=== PATIENT | male | born 1945 | race Asian ===

== ENCOUNTER 2019-04-03 11:52 | Emergency (ER) | payer OTHER ==
[~2019-04-03] VITALS: Ht 175.3 cm; Wt 68.5 kg
[~2019-04-03 11:52] MED LIST: JALYN1 CAP PO; LEVOCETIRIZINE D5 M1 PO; NITROSTAT0.6 MG SL; PULMICORT0.5 MG/2 M IH; [UNRECOGNIZED DRUG - CODE] PO
[2019-04-03 11:56] VITALS: Ht 175.3 cm; Wt 68.5 kg
[2019-04-03] MEDS ORDERED: GOOD SENSE OMEP20 MG PO (12:24)
[2019-04-03] MEDS ORDERED: ROBAXIN500 MG PO (12:25)
[2019-04-03] MEDS ORDERED: THEOPHYLLINE400 M1 PO (12:25)
[2019-04-03] MEDS ORDERED: ASPIR 8181 MG PO (12:26)
[2019-04-03] MEDS ORDERED: FLO4 PO (12:27)
[2019-04-03] MEDS ORDERED: [UNRECOGNIZED DRUG - OTHER] (12:31)
[2019-04-03] MEDS ORDERED: SERETIDE (12:32)
[2019-04-03] MEDS ORDERED: SPIRIVA18 MC1 INH (12:32)
[2019-04-03 15:49] LABS: BASOPHIL % 0.3 % (0-2); PLATELET COUNT 195 x10^3mcL (130-400)
[2019-04-03 15:59] LABS: RED CELL DISTRIBUTION WIDTH 16.1 % (11.5-14.5)
[2019-04-03 16:06] LABS: CARBON DIOXIDE 32.3 mmol/L (21-32); CHLORIDE SERUM 106 mmol/L (98-107); CREATININE SERUM 1.1 mg/dL (0.7-1.3); GLUCOSE SERUM 119 mg/dL (74-106); POTASSIUM SERUM 4.9 mmol/L (3.5-5.1); SODIUM SERUM 142 mmol/L (136-145)
[2019-04-03 16:11] LABS: ALBUMIN 4.1 g/dL (3.4-5.0); ALKALINE PHOSPHATASE 90 U/L (46-116); ALT/SGPT 18 U/L (16-63); AST/SGOT 19 U/L (15-37); BILIRUBIN TOTAL 0.5 mg/dL (0.20-1.00); TOTAL PROTEIN, SERUM 7.7 g/dL (6.4-8.2)
[2019-04-03 19:16] VITALS: BP 156/84
== END 2019-04-03 19:46 | disposition home or self-care (01) ==
LOC: ED 11:52
PROVIDERS: Student in an Organized Health Care Education/Training Program
DX: J44.1 Chronic obstructive pulmonary disease with (acute) exacerbation (principal); I10 Essential (primary) hypertension; I71.2 Thoracic aortic aneurysm, without rupture; F17.210 Nicotine dependence, cigarettes, uncomplicated; Z86.73 Personal history of transient ischemic attack (TIA), and cerebral infarction without residual deficits
CPT/HCPCS: 83880; 85378; J2930; J7613; J7644; Q0092; Q9967

== ENCOUNTER 2019-12-26 22:28 | Inpatient (IN) | payer OTHER, SELFPAY ==
[~2019-12-26] VITALS: Ht 165.1 cm; Wt 70.3 kg
[~2019-12-26 22:28] MED LIST changes: +ASPIR 8181 MG PO; +FLO4 PO; +GOOD SENSE OMEP20 MG PO; +ROBAXIN500 MG PO; +SERETIDE; +SPIRIVA18 MC1 INH; +THEOPHYLLINE400 M1 PO; +[UNRECOGNIZED DRUG - OTHER]
[2019-12-26 22:29] VITALS: Ht 165.1 cm; Wt 70.3 kg
[2019-12-26 23:05] LABS: BASOPHIL % 0.5 % (0-2); PLATELET COUNT 210 x10^3mcL (130-400)
[2019-12-26 23:06] LABS: RED CELL DISTRIBUTION WIDTH 15.1 % (11.5-14.5)
[2019-12-26 23:30] LABS: CALCIUM 8.5 mg/dL (8.5-10.1); CARBON DIOXIDE 32.2 mmol/L (21-32); CHLORIDE SERUM 106 mmol/L (98-107); CREATININE SERUM 1.3 mg/dL (0.7-1.3); GLUCOSE SERUM 125 mg/dL (74-106); POTASSIUM SERUM 4.2 mmol/L (3.5-5.1); SODIUM SERUM 143 mmol/L (136-145)
[2019-12-26 23:34] LABS: ALBUMIN 4.4 g/dL (3.4-5.0); ALKALINE PHOSPHATASE 93 U/L (46-116); ALT/SGPT 37 U/L (16-63); AST/SGOT 44 U/L (15-37); BILIRUBIN TOTAL 0.3 mg/dL (0.20-1.00); C REACTIVE PROTEIN 1.2 mg/dL (<=0.9); LACTIC DEHYDROGENASE (LDH) 204 U/L (100-190); TOTAL PROTEIN, SERUM 8.2 g/dL (6.4-8.2)
[2019-12-27] MEDS ORDERED: QVAR REDIHALE10.6 G1 (01:34)
[2019-12-27] MEDS ORDERED: DITROPAN XL5 MG (01:35)
[2019-12-27] MEDS ORDERED: FINASTERIDE1 MG (01:36)
[2019-12-27] MEDS ORDERED: APAP325 MG (01:37)
[2019-12-27] MEDS ORDERED: TERAZOSIN HCL5 MG PO (01:38)
[2019-12-27 06:10] VITALS: BP 157/86
[2019-12-27 08:00] LABS: CHOLESTEROL/HDL RATIO 3.4; PHOSPHOROUS 2.8 mg/dL (2.5-4.9)
[2019-12-27 08:05] LABS: T3 TOTAL 0.89 ng/mL
[2019-12-27 08:07] LABS: FREE T4 1.03 ng/dL (0.76-1.46); FREE THYROXINE INDEX 2.7 ug/dL (1.4-4.5); T4(THYROXINE) 6.8 ug/dL (4.7-13.3)
[2019-12-27 08:40] VITALS: BP 149/87
[2019-12-27 09:44] LABS: BASOPHIL % 0.1 % (0-2); PLATELET COUNT 211 x10^3mcL (130-400)
[2019-12-27 09:59] LABS: RED CELL DISTRIBUTION WIDTH 15.3 % (11.5-14.5)
[2019-12-27 12:24] LABS: CALCIUM 9.2 mg/dL (8.5-10.1); CARBON DIOXIDE 19.3 mmol/L (21-32); CHLORIDE SERUM 109 mmol/L (98-107); CREATININE SERUM 1.4 mg/dL (0.7-1.3); GLUCOSE SERUM 109 mg/dL (74-106); MAGNESIUM 2.4 mg/dL (1.8-2.4); PHOSPHOROUS 4.5 mg/dL (2.5-4.9); POTASSIUM SERUM 4.9 mmol/L (3.5-5.1); SODIUM SERUM 151 mmol/L (136-145)
[2019-12-27 12:50] VITALS: BP 140/83
[2019-12-27 15:06] LABS: AMPHETAMINE QUAL UR NONE DETECTED (See below)
[2019-12-27 16:30] VITALS: BP 127/68
[2019-12-27 19:07] LABS: microscopic required? NO
[2019-12-27 19:21] LABS: urine erythrocyte NEGATIVE (NEGATIVE)
[2019-12-27 20:30] VITALS: BP 121/68
[2019-12-28 05:30] VITALS: BP 108/52
[2019-12-28 10:06] VITALS: BP 133/72
[2019-12-28 13:55] VITALS: BP 137/69
[2019-12-28 17:03] VITALS: BP 108/66
[2019-12-28 22:49] VITALS: BP 133/70
[2019-12-29 06:00] VITALS: BP 125/79
[2019-12-29 08:09] LABS: ALKALINE PHOSPHATASE 67 U/L (46-116); ALT/SGPT 26 U/L (16-63); AST/SGOT 19 U/L (15-37); BILIRUBIN TOTAL 0.3 mg/dL (0.20-1.00); C REACTIVE PROTEIN 0.6 mg/dL (<=0.9); CALCIUM 8.3 mg/dL (8.5-10.1); CARBON DIOXIDE 30.4 mmol/L (21-32); CHLORIDE SERUM 105 mmol/L (98-107); GLUCOSE SERUM 128 mg/dL (74-106); MAGNESIUM 2.2 mg/dL (1.8-2.4); PHOSPHOROUS 3.4 mg/dL (2.5-4.9); POTASSIUM SERUM 4.1 mmol/L (3.5-5.1); SODIUM SERUM 143 mmol/L (136-145); TOTAL PROTEIN, SERUM 6.4 g/dL (6.4-8.2)
[2019-12-29 08:16] LABS: ALBUMIN 3.3 g/dL (3.4-5.0)
[2019-12-29 08:35] LABS: PLATELET COUNT 223 x10^3mcL (130-400)
[2019-12-29 09:03] LABS: BASOPHIL % 0 % (0-2); RED CELL DISTRIBUTION WIDTH 15.6 % (11.5-14.5)
[2019-12-29 09:16] VITALS: BP 140/75
[2019-12-29] MEDS ORDERED: LEVAQUIN500 M1 PO (12:53)
[2019-12-29] MEDS ORDERED: METHYLPREDNISOL32 MG PO (12:53)
[2019-12-29 13:35] VITALS: BP 110/68
[2019-12-29 14:07] VITALS: BP 110/68
== END 2019-12-29 15:09 | disposition home or self-care (01) | DRG 133 ==
LOC: ED 22:28 → DU 12-27 00:49
PROVIDERS: Emergency Medicine; ADMIT Internal Medicine; ATTEND Internal Medicine
DX: J96.01 Acute respiratory failure with hypoxia (principal); N17.9 Acute kidney failure, unspecified; E87.0 Hyperosmolality and hypernatremia; J44.1 Chronic obstructive pulmonary disease with (acute) exacerbation; J45.901 Unspecified asthma with (acute) exacerbation; J96.02 Acute respiratory failure with hypercapnia; I10 Essential (primary) hypertension; N40.0 Benign prostatic hyperplasia without lower urinary tract symptoms; Z20.828 Contact with and (suspected) exposure to other viral communicable diseases; F17.210 Nicotine dependence, cigarettes, uncomplicated; Z86.73 Personal history of transient ischemic attack (TIA), and cerebral infarction without residual deficits
CPT/HCPCS: 36600; 83880; 84439; 85378; 87804; G0378; J0456; J0696; J1650; J2920; J2930; J3475; J3535; J7030; J7050; J7070; Q0092; U0003-CS